=== PATIENT | female | born 1960 | race Caucasian/White ===

== ENCOUNTER → 2017-09-16 | Outpatient (CLI) | payer OTHER | LOC: FIMAGING 14:55 | PROVIDERS: ATTEND Orthopaedic Surgery | DX: Z01.818 Encounter for other preprocedural examination (principal); M16.11 Unilateral primary osteoarthritis, right hip ==

== ENCOUNTER 2017-10-05 11:56 | Inpatient (IN) | payer OTHER ==
--- NOTE | 2017-10-05 07:17 | PDHPUP ---
History & Physical Update H&P update statement: This history and physical update is based on an assessment of the patient which was completed after admission or registration (within 24 hours), but prior to the surgery/procedure. H&P update: H&P reviewed & patient examined, no change in patient's condition since H&P completed
[~2017-10-05 11:56] MED LIST: BUPI/epINEPH/KETOROLAC IU ONE; ROPIVACAINE 0.2% 80 MG, EPINEPHrine 0.2 MG, KETOROLAC TROMETHAMINE 30 MG in SYRINGE 0 ML IU ONE; TRANEXAMIC ACID 3,000 MG in NS (SYRINGE) 50 ML IRR ONE; TRANEXAMIC ACID 3,000 MG/50 ML BAG IRR ONE
[2017-10-05] MEDS ORDERED: ACETAMINOPHEN 325 MG TAB PO ONE (12:42)
[2017-10-05] MEDS ORDERED: ceFAZolin 2 GM/SWFI 2 GM/20 ML SYR IVP ONE (12:42)
[2017-10-05] MEDS ORDERED: FAMOTIDINE 20 MG TAB PO ONE (12:42)
[2017-10-05] MEDS ORDERED: DEXAMETHASONE 4 MG/ML VIAL IVP ONE (12:42)
[2017-10-05] MEDS ORDERED: LR 1,000 ML IV ONE (12:43)
[2017-10-05] MEDS ORDERED: MIDAZOLAM 2 MG/2 ML VIAL IVP ONE (14:04)
--- NOTE | 2017-10-05 14:04 | PDANEPAE ---
ANE History of Present Illness Hip OA ANE Past Medical History - Cardiovascular History Hx Hypertension: No Hx Arrhythmias: No Hx Chest Pain: No Hx Coronary Artery / Peripheral Vascular Disease: No Hx CHF / Valvular Disease: No Hx Palpitations: No - Pulmonary History Hx COPD: No Hx Asthma/Reactive Airway Disease: No Hx Recent Upper Respiratory Infection: No Hx Oxygen in Use at Home: No Hx Sleep Apnea: No Sleep Apnea Screening Result - Last Documented: Negative - Neurologic History Hx Cerebrovascular Accident: No Hx Seizures: No Hx Dementia: No - Endocrine History Hx Diabetes: No - Renal History Hx Renal Disorders: No - Liver History Hx Hepatic Disorders: No - Neurological & Psychiatric Hx Hx Neurological and Psychiatric Disorders: No - Cancer History Hx Cancer: Yes Cancer History Comment: breast CA - Congenital Disorder History Hx Congenital Disorders: No - GI History Hx Gastrointestinal Disorders: No - Other Health History Other Health History: none - Chronic Pain History Chronic Pain: Yes (back,left hip) - Surgical History Prior Surgeries: none ANE Review of Systems Review of Systems: - Exercise capacity METS (RN): 4 METS ANE Patient History - Allergies Allergies/Adverse Reactions: No Known Allergies Allergy (Verified 09/06/17 16:10) - Home Medications Home Medications: Acetaminophen [Tylenol 325mg (*)] 650 mg PO Q6H PRN 09/06/17 [Last Taken ] Herbals/Supplements -Info Only 1 ea PO DAILY 09/06/17 [Last Taken 2 Weeks Ago ~ 09/21/17] Meloxicam 15 mg PO DAILY 09/06/17 [Last Taken 2 Weeks Ago ~09/21/17] Multivitamins [Multivitamin (*)] 1 each PO DAILY 09/06/17 [Last Taken Unknown] - NPO status NPO Since - Liquids (Date): 10/05/17 NPO Since - Liquids (Time): 10:45 NPO Since - Solids (Date): 10/04/17 NPO Since - Solids (Time): 23:30 - Anes Hx Anes Hx: no prior problems - Smoking Hx Smoking Status: Never smoked - Family Anes Hx Family Hx Anesthesia Complications: none ANE Labs/Vital Signs - Vital Signs Blood Pressure: 129/83 Heart Rate: 73 Respiratory Rate: 14 O2 Sat (%): 96 Height: 160.02 cm Weight: 60.781 kg ANE Physical Exam - Airway Neck exam: FROM Mallampati Score: Class 1 Mouth exam: normal dental/mouth exam - Pulmonary Pulmonary: clear to auscultation - Cardiovascular Cardiovascular: regular rate and rhythym - ASA Status ASA Status: I ANE Anesthesia Plan Anesthesia Plan: spinal
[2017-10-05] MEDS ORDERED: LIDOCAINE 2% 5 ML SDV ONE (14:20)
[2017-10-05] MEDS ORDERED: PROPOFOL/EMULSION 500 MG/50 ML BOTTLE IV ONE (14:20)
[2017-10-05] MEDS ORDERED: NALOXONE HCL 0.4 MG/ML INJ IVP PRN (15:13)
[2017-10-05] MEDS ORDERED: ONDANSETRON 4 MG/2 ML VIAL IVP PRN ×2 (15:13→15:59)
[2017-10-05] MEDS ORDERED: HYDROmorphONE/DILAUDID 2 MG/ML INJ IVP PRN (15:13)
[2017-10-05] MEDS ORDERED: fentaNYL 100 MCG/2 ML INJ IVP PRN (15:13)
[2017-10-05] MEDS ORDERED: PROPOFOL 200 MG/20 ML VIAL ONE (15:20)
[2017-10-05] MEDS ORDERED: PHENYLEPHRINE HCL 100 MCG/ML SYR ONE (15:39)
[2017-10-05] MEDS ORDERED: TEMAZEPAM 15 MG CAP PO PRN (15:59)
[2017-10-05] MEDS ORDERED: ONDANSETRON DISINTEGRATING 4 MG TAB PO PRN (15:59)
[2017-10-05] MEDS ORDERED: DIPHENOXYLATE/ATROPINE LOMOTIL 1 TAB PO PRN (15:59)
[2017-10-05] MEDS ORDERED: oxyCODONE IR 5 MG TAB PO PRN (15:59)
[2017-10-05] MEDS ORDERED: METOCLOPRAMIDE 10 MG/2 ML VIAL IVP PRN (15:59)
[2017-10-05] MEDS ORDERED: MAGNESIUM HYDROXIDE 30 ML UDCUP PO PRN (15:59)
[2017-10-05] MEDS ORDERED: LACTULOSE 20 GM/30 ML UDCUP PO PRN (15:59)
[2017-10-05] MEDS ORDERED: PROMETHAZINE HCL 25 MG/ML INJ IVP PRN (15:59)
[2017-10-05] MEDS ORDERED: PROMETHAZINE HCL 25 MG SUPPR PR PRN (15:59)
[2017-10-05] MEDS ORDERED: diphenhydrAMINE 25 MG CAP PO PRN (15:59)
[2017-10-05] MEDS ORDERED: BISACODYL 10 MG SUPP PR PRN (15:59)
[2017-10-05] MEDS ORDERED: POLYETHYLENE GLYCOL 3350 17 GM PKT PO PRN (15:59)
--- NOTE | 2017-10-05 15:59 | POSTOPPROG ---
Post Op Note Date of Operation: 10/05/17 Surgeon: Michaela Rivas Claims Assistant: indy rivas Anesthesiologist: dr. waddell Anesthesia: Spinal Pre-op Diagnosis: right hip OA Post-op Diagnosis: same Indication: right hip pain Procedure: R ISABEL ant approach, robot assisted Findings: severe hip OA Inf/Abcess present in the surg proc area at time of surgery?: No EBL: 100-500
[2017-10-05] MEDS ORDERED: LR 1,000 ML IV SCH (16:00)
--- NOTE | 2017-10-05 16:04 | PDMN ---
Medical Necessity Medical necessity: S560 hip arthroplasty A-2 INPT only: R ISABEL ant. approach, robot assist.
--- NOTE | 2017-10-05 16:07 | POSTANESTH ---
Post Anesthetic Evaluation Cardiovascular Status: Normal, Stable Respiratory Status: Normal, Stable Level of Consciousness/Mental Status: Can Participate in Eval Pain Control: Adequate, Prn Tx Ordered Nausea/Vomiting Control: Adequate, Prn Tx Ordered Complications Possibly Related to Anesthesia: None Noted
[2017-10-05] MEDS ORDERED: HYDROmorphONE/DILAUDID 2 MG/ML INJ ONE (16:10)
[2017-10-05] MEDS ORDERED: fentaNYL 100 MCG/2 ML INJ ONE (16:10)
[2017-10-05 17:25] VITALS: RESP 16
[2017-10-05] MEDS: ACETAMINOPHEN 325 MG TAB PO SCH (18:52)
[2017-10-05] MEDS ORDERED: ceFAZolin 2 GM/DEXTROSE 100 ML IV SCH (22:00)
[2017-10-05] MEDS: ceFAZolin 2 GM/SWFI 2 GM/20 ML SYR IVP SCH (22:50)
[2017-10-05] MEDS: CYCLOBENZAPRINE 10 MG TAB PO PRN (22:59)
[2017-10-05] MEDS: FAMOTIDINE 20 MG TAB PO SCH (22:59)
[2017-10-05] MEDS: SENNOSIDES/DOCUSATE SODIUM TAB PO SCH (22:59)
[2017-10-05] MEDS: ASPIRIN 81 MG CHEWABLE TAB PO SCH (22:59)
[2017-10-06] MEDS: ACETAMINOPHEN 325 MG TAB PO SCH ×2 (01:45→05:11)
[2017-10-06] MEDS: ceFAZolin 2 GM/SWFI 2 GM/20 ML SYR IVP SCH (05:11)
--- NOTE | 2017-10-06 06:11 | GOP ---
[f rep st] OPERATIVE REPORT DATE OF OPERATION: 10/05/2017 SURGEON: Sondra Ortiz MD MANUFACTURE SPECIALIST: Mary Ortiz, CRAIG. ANESTHESIA: Spinal. PREOPERATIVE DIAGNOSIS: Right hip osteoarthritis. POSTOPERATIVE DIAGNOSIS: Right hip osteoarthritis. PROCEDURE PERFORMED: Right total hip arthroplasty with computer navigation, robotics. FINDINGS: ESTIMATED BLOOD LOSS: 200 cc. INDICATIONS: The patient has progressively worsening arthritis of the hip which has failed medical m anagement. The patient understands the treatment option including continued non-operative care and h as selected surgical intervention. The patient has decided to undergo total hip arthroplasty via the direct anterior approach understanding the risks of the procedure including, but not limited to, renuka rovascular injury, infection, persistent pain, component wear and loosening, deep venous thrombosis, pulmonary embolism, limb length inequality (including dislocation), and intraoperative fractures. DESCRIPTION OF PROCEDURE: After proper identification of the patient including verification and cortez ing the surgical site, the patient was brought to the operating room and placed in the supine positio n. All bony prominences were well padded. Anesthesia was induced without complication and intraveno us prophylactic antibiotics were administered prior to skin incision. After prepping and draping in the usual sterile fashion, attention was drawn to the contralateral pel vis for attachment of the computer navigation tracker. Three percutaneous incisions were made over t he iliac crest and the pelvic tracker was affixed using threaded 3.5 mm pins yielding excellent fixat ion. Using computer navigation the patient's leg length and topographical pelvic anatomy was registe red without complication. Attention was then drawn to surgical exposure of the hip. An incision was made with a #10 Bard Orange r blade starting 3 cm lateral and 3 cm distal to the anterior superior iliac spine measuring 8 cm to 10 cm and coursing distally toward the greater trochanter. The skin and subcutaneous tissues were di vided sharply down the fascia lazaro. The fascia lazaro was incised in line with the skin incision expos ing the underlying tensor fascia lazaro muscle. This muscle was bluntly elevated from the fascia and t he first extracapsular Cobra retractor was placed laterally at the junction of the superior femoral n piper and greater trochanter. The lateral femoral circumflex vessels were identified, cauterized and d ivided with the Aquamantys bipolar cautery. The deep investing fascia of the TFL was divided to allo w proper mobilization of the muscle preventing damage during retraction. The reflected head of the r ectus femoris muscle was elevated off the anterior hip capsule and a medial Cobra retractor was place d just proximal to the lesser trochanter. The anterior capsulotomy was made sharply from the superolateral acetabulum to the saddle junction of the superior femoral neck and greater trochanter, then coursing inferomedial towards the lesser troc hanter. The retractors were then placed in the intracapsular position for femoral neck osteotomy. C orresponding to preoperative templating the osteotomy was made with the oscillating saw protecting th e greater trochanter and soft tissues. The femoral head was removed from the acetabulum with a corks crew and confirmed to be severely arthritic with exposed bone, deformity and osteophytes. Similar fi nding was confirmed in the acetabulum. The Arch table extension was then placed in 40 degrees external rotation. Attention was then drawn t o the acetabular preparation. After placement of the anterior and posterior Cobra retractors outside the labrum and intrascapular the circumferential labrum was removed sharply. The foveal contents we re then removed and hemostasis obtained with cautery. The anatomy of the acetabulum was then registe red using computer navigation. The first reamer selected was sized using the removed femoral head. Reaming began with robotic cam t at 40 degrees of abduction and 20 degrees of anteversion using computer navigation. Reaming ceased 0 mm less than the definitive acetabular component. The final acetabular component was inserted usi ng the computer to achieve proper orientation yielding excellent purchase and stability in the acetab ulum. The final acetabular liner was then placed and its seating confirmed. Attention was then turned to the femur. The Arch table extension was placed in extension and adducti on delivering the osteotomized femoral neck into the wound. A 2-pronged femoral elevator was placed at the calcar and another at the tip of the greater trochanter. The posterolateral capsule was relea sed with cautery allowing mobilization of the femur lateral and anterior for preparation. The experience specialist al rotators were visualized and preserved. A curette and rongeur were used to open the starting poin t for broaching. Serial broaching started with the #0 broach and ended with the broach that exhibited excellent fit in the proximal femur. A change in pitch during mallet strikes was accompanied by the inability to advance the broach any further. The trial reduction was performed and fluoroscopic dmitri igation was utilized to check limb length. Adjustments were made to equalize limb length accordingly . After the final trials were accepted they were removed and the wound was copiously lavaged. The femo ral component was seated to the same depth as the final broach and the femoral head was impacted onto the clean trunnion. The hip was then reduced for the final time and once more fluoroscopic navigati on used to check that limb length equality was achieved. The wound was irrigated and closed in layers, the fascia lazaro with 2-0 Quill, the subcutaneous tissue with a 2-0 Quill, and the skin with Dermabond, including the small incisions for computer navigation . Sterile dressings were applied. Final sharps and sponge counts were accurate. The patient was th en transferred to a hospital bed and brought to the recovery room in stable condition. IMPLANTS: Accolade II, size 5 at 127. Acetabular component a 54 mm Trident II. Liner is a Trident X3, 36 mm. The head is a Biolox Delta, 36 mm +0. /[id number]/MODL
[2017-10-06 07:42] VITALS: BP 124/75; PULSE 91; TEMP 98.5; O2SAT 95
[2017-10-06] MEDS: SENNOSIDES/DOCUSATE SODIUM TAB PO SCH (08:03)
[2017-10-06] MEDS: FAMOTIDINE 20 MG TAB PO SCH (08:03)
[2017-10-06] MEDS: ASPIRIN 81 MG CHEWABLE TAB PO SCH (08:03)
[2017-10-06] MEDS: CYCLOBENZAPRINE 10 MG TAB PO PRN (08:07)
--- NOTE | 2017-10-06 08:45 | SOAPPROG ---
SOAP Progress Note Assessment/Plan: Assessment: Patient is doing well POD 1 s/p R ISABEL Pain management: pain is well controlled on oral pain meds. VTE ppx: recommend aspirin 81 mg BID for 4 weeks, cont JACINTA and SCDs Anemia: level is expected initially postop. Asymptomatic. Continue to monitor D/c planning: d/c to home today pending release from PT Plan: 10/06/17 08:44 Subjective: Jena is doing well today, POD1, denies SOB, chest pain and N/V Objective: Vital Signs Temp Pulse Resp BP Pulse Ox 36.9 C 91 16 124/75 H 95 10/06/17 07:41 10/06/17 07:41 10/06/17 07:41 10/06/17 07:41 10/06/17 07:41 Laboratory Results 10/06/17 04:42 10/05/17 10/06/17 10/07/17 05:59 05:59 05:59 Intake Total 1950 Output Total 1800 400 Balance 150 -400 RLE: incision dressing is clean and dry, NVI, +pf/df ICD10 Worksheet Patient Problems: Problems Problem Status Onset Primary localized osteoarthritis of right hip Acute
--- NOTE | 2017-10-06 15:33 | GDS ---
[f rep st] DISCHARGE SUMMARY ADMISSION DIAGNOSIS: Right hip osteoarthritis. DISCHARGE DIAGNOSIS: Right hip osteoarthritis. PROCEDURE: Right total hip arthroplasty, robot assisted. VTE PROPHYLAXIS: Recommend aspirin 81 mg twice daily. BRIEF DESCRIPTION OF HOSPITAL STAY: Patient was admitted for an elective joint arthroplasty. The pa tient tolerated the procedure well and has passed physical therapy. The patient was given appropriat e antibiotic prophylaxis and venous thromboembolism prophylaxis. The patient's pain was well control led on oral pain medication, patient was holding down food, and had urinated. Decision was made to d ischarge the patient. The patient was given post-operative prescriptions pre-operatively. PLAN: Follow up as scheduled at Dr. Ortiz's office October 27, at 8:45 a.m. /[id number]/MODL
== END 2017-10-06 12:05 | disposition home or self-care (01) | DRG 470 ==
LOC: F3N 11:56
PROVIDERS: ADMIT Orthopaedic Surgery; ATTEND Orthopaedic Surgery
PROC: 0SR904A Replacement of Right Hip Joint with Ceramic on Polyethylene Synthetic Substitute, Uncemented, Open Approach (ICD-10-PCS; principal; 2017-10-05 14:15)
PROC: 8E0Y0CZ Robotic Assisted Procedure of Lower Extremity, Open Approach (ICD-10-PCS; principal; 2017-10-05 14:15)
DX: M16.11 Unilateral primary osteoarthritis, right hip (principal)
CPT/HCPCS: 97161-GP; 97165-GO; J0171; J0690; J1100; J1170; J1885; J2250; J2370; J2704; J3010

== ENCOUNTER → 2017-11-29 | Outpatient (CLI) | payer OTHER | LOC: FIMAGING 08:45 | PROVIDERS: ATTEND Orthopaedic Surgery | DX: M16.12 Unilateral primary osteoarthritis, left hip (principal); M48.061 Spinal stenosis, lumbar region without neurogenic claudication; M51.26 Other intervertebral disc displacement, lumbar region; M25.552 Pain in left hip ==

== ENCOUNTER 2017-12-14 08:15 | Inpatient (IN) | payer OTHER ==
[~2017-12-14 08:15] MED LIST changes: -BUPI/epINEPH/KETOROLAC IU ONE; -TRANEXAMIC ACID 3,000 MG/50 ML BAG IRR ONE
[2017-12-14] MEDS ORDERED: TRANEXAMIC ACID 3,000 MG/50 ML BAG IRR ONE (08:44)
[2017-12-14] MEDS ORDERED: LR 1,000 ML IV ONE (12:21)
[2017-12-14] MEDS ORDERED: ACETAMINOPHEN 325 MG TAB PO ONE (12:21)
[2017-12-14] MEDS ORDERED: ceFAZolin 2 GM/DEXTROSE 100 ML IV ONE (12:21)
[2017-12-14] MEDS ORDERED: FAMOTIDINE 20 MG TAB PO ONE (12:21)
[2017-12-14] MEDS ORDERED: DEXAMETHASONE 4 MG/ML VIAL IVP ONE (12:21)
--- NOTE | 2017-12-14 13:29 | PDANEPAE ---
ANE History of Present Illness 57 year old female presents for robot assisted left total hip arthroplasty. ANE Past Medical History - Cardiovascular History Hx Hypertension: No Hx Arrhythmias: No Hx Chest Pain: No Hx Coronary Artery / Peripheral Vascular Disease: No Hx CHF / Valvular Disease: No Hx Palpitations: No - Pulmonary History Hx COPD: No Hx Asthma/Reactive Airway Disease: No Hx Recent Upper Respiratory Infection: No Hx Oxygen in Use at Home: No Hx Sleep Apnea: No Sleep Apnea Screening Result - Last Documented: Negative - Neurologic History Hx Cerebrovascular Accident: No Hx Seizures: No Hx Dementia: No - Endocrine History Hx Diabetes: No - Renal History Hx Renal Disorders: No - Liver History Hx Hepatic Disorders: No - Neurological & Psychiatric Hx Hx Neurological and Psychiatric Disorders: No - Cancer History Hx Cancer: Yes Cancer History Comment: breast CA - Congenital Disorder History Hx Congenital Disorders: No - GI History Hx Gastrointestinal Disorders: No - Other Health History Other Health History: none - Chronic Pain History Chronic Pain: Yes (back,left hip) - Surgical History Prior Surgeries: none ANE Review of Systems Review of Systems: - Exercise capacity Exercise capacity: >=4 METS METS (RN): 4 METS ANE Patient History - Allergies Allergies/Adverse Reactions: No Known Allergies Allergy (Verified 12/14/17 12:37) - Home Medications Home medications: home medication list seen and reviewed Home Medications: Acetaminophen [Tylenol 325mg (*)] 650 mg PO Q6H PRN 09/06/17 [Last Taken ] Herbals/Supplements -Info Only 1 ea PO DAILY 09/06/17 [Last Taken 11/30/17] Multivitamins [Multivitamin (*)] 1 each PO DAILY 09/06/17 [Last Taken 11/30/17] Meloxicam 15 mg PO DAILY 11/21/17 [Last Taken 12/07/17] - NPO status NPO Since - Liquids (Date): 12/14/17 NPO Since - Liquids (Time): 09:00 NPO Since - Solids (Date): 12/13/17 NPO Since - Solids (Time): 19:00 - Anes Hx Anes Hx: no prior problems - Smoking Hx Smoking Status: Never smoked - Alcohol Use Alcohol Use: Occasionally - Family Anes Hx Family Anes Hx: neg - N/A Family Hx Anesthesia Complications: none ANE Labs/Vital Signs - Vital Signs Vital Signs: reviewed preoperatively; see RN documention for details Blood Pressure: 136/91 Heart Rate: 81 Respiratory Rate: 16 O2 Sat (%): 95 Height: 160.02 cm Weight: 62.142 kg ANE Physical Exam - Airway Neck exam: FROM Mallampati Score: Class 2 Mouth exam: normal dental/mouth exam - Pulmonary Pulmonary: no respiratory distress - Cardiovascular Cardiovascular: regular rate and rhythym - ASA Status ASA Status: II ANE Anesthesia Plan Anesthesia Plan: GA w LMA, MAC, spinal Total IV Anesthesia: No
[2017-12-14] MEDS ORDERED: MIDAZOLAM 2 MG/2 ML VIAL ONE (14:00)
[2017-12-14] MEDS ORDERED: MIDAZOLAM 2 MG/2 ML VIAL IVP ONE (14:01)
[2017-12-14] MEDS ORDERED: PROPOFOL/EMULSION 500 MG/50 ML BOTTLE IV ONE ×2 (14:07→15:03)
[2017-12-14] MEDS ORDERED: DEXAMETHASONE 4 MG/ML VIAL ONE (14:10)
[2017-12-14] MEDS ORDERED: ONDANSETRON 4 MG/2 ML VIAL ONE (14:10)
[2017-12-14] MEDS ORDERED: oxyCODONE IR 5 MG TAB PO PRN (14:37)
[2017-12-14] MEDS ORDERED: LACTULOSE 20 GM/30 ML UDCUP PO PRN (14:37)
[2017-12-14] MEDS ORDERED: diphenhydrAMINE 25 MG CAP PO PRN (14:37)
[2017-12-14] MEDS ORDERED: BISACODYL 10 MG SUPP PR PRN (14:37)
[2017-12-14] MEDS ORDERED: DIPHENOXYLATE/ATROPINE LOMOTIL 1 TAB PO PRN (14:37)
[2017-12-14] MEDS ORDERED: PROMETHAZINE HCL 25 MG/ML INJ IVP PRN (14:37)
[2017-12-14] MEDS ORDERED: METOCLOPRAMIDE 10 MG/2 ML VIAL IVP PRN (14:37)
[2017-12-14] MEDS ORDERED: PROMETHAZINE HCL 25 MG SUPPR PR PRN (14:37)
[2017-12-14] MEDS ORDERED: ONDANSETRON DISINTEGRATING 4 MG TAB PO PRN (14:37)
[2017-12-14] MEDS ORDERED: MAGNESIUM HYDROXIDE 30 ML UDCUP PO PRN (14:37)
[2017-12-14] MEDS ORDERED: ONDANSETRON 4 MG/2 ML VIAL IVP PRN ×2 (14:37→14:56)
[2017-12-14] MEDS ORDERED: TEMAZEPAM 15 MG CAP PO PRN (14:37)
[2017-12-14] MEDS ORDERED: POLYETHYLENE GLYCOL 3350 17 GM PKT PO PRN (14:37)
[2017-12-14] MEDS ORDERED: PHENYLEPHRINE HCL 100 MCG/ML SYR IVP PRN (14:56)
[2017-12-14] MEDS ORDERED: NALOXONE HCL 0.4 MG/ML INJ IVP PRN (14:56)
[2017-12-14] MEDS ORDERED: fentaNYL 100 MCG/2 ML INJ IVP PRN (14:56)
[2017-12-14] MEDS ORDERED: DIAZEPAM 5 MG/ML 1 ML SYR IVP PRN (14:56)
[2017-12-14] MEDS ORDERED: LR 500 ML IV PRN (14:56)
[2017-12-14] MEDS ORDERED: HYDROmorphONE/DILAUDID 1 MG/ML INJ IVP PRN (14:56)
[2017-12-14] MEDS ORDERED: LR 1,000 ML IV SCH (15:00)
--- NOTE | 2017-12-14 16:06 | POSTOPPROG ---
Post Op Note Date of Operation: 12/14/17 Surgeon: Michaela Ortiz Design Analyst: Mary Ortiz PAc Anesthesiologist: Randy Anesthesia: Spinal Pre-op Diagnosis: L hip djd Post-op Diagnosis: same Indication: pain Procedure: L ISABEL with robotic assist Findings: DJD hip Inf/Abcess present in the surg proc area at time of surgery?: No EBL: 100-500
--- NOTE | 2017-12-14 16:55 | POSTANESTH ---
Post Anesthetic Evaluation Cardiovascular Status: Normal, Stable, Similar to Pre-Op Cond Respiratory Status: Normal, Stable, Similar to Pre-op Cond. Level of Consciousness/Mental Status: Can Participate in Eval, Alert and Oriented Pain Control: Adequate, Prn Tx Ordered Nausea/Vomiting Control: Adequate, Prn Tx Ordered Complications Possibly Related to Anesthesia: None Noted
[2017-12-14] MEDS ORDERED: fentaNYL 100 MCG/2 ML INJ ONE (18:07)
[2017-12-14] MEDS: ACETAMINOPHEN 325 MG TAB PO SCH ×2 (18:36→23:54)
[2017-12-14] MEDS: FAMOTIDINE 20 MG TAB PO SCH (20:11)
[2017-12-14] MEDS: ASPIRIN 81 MG CHEWABLE TAB PO SCH (20:11)
[2017-12-14] MEDS: SENNOSIDES/DOCUSATE SODIUM TAB PO SCH (20:11)
--- NOTE | 2017-12-14 20:14 | GOP ---
[f rep st] OPERATIVE REPORT DATE OF OPERATION: 12/14/2017 SURGEON: Sondra Ortiz MD NEUROSURGEON: Sondra Ortiz MD. RN SCHOOL: [employer]. ANESTHESIA: Spinal. PREOPERATIVE DIAGNOSIS: Left hip osteoarthritis. POSTOPERATIVE DIAGNOSIS: Left hip osteoarthritis. PROCEDURE PERFORMED: Total hip arthroplasty with computer navigation with robotic assist. FINDINGS: ESTIMATED BLOOD LOSS: 200 cc. INDICATIONS: The patient has progressively worsening arthritis of the hip which has failed medical m anagement. The patient understands the treatment option including continued non-operative care and h as selected surgical intervention. The patient has decided to undergo total hip arthroplasty via the direct anterior approach understanding the risks of the procedure including, but not limited to, renuka rovascular injury, infection, persistent pain, component wear and loosening, deep venous thrombosis, pulmonary embolism, limb length inequality (including dislocation), and intraoperative fractures. DESCRIPTION OF PROCEDURE: After proper identification of the patient including verification and cortez ing the surgical site, the patient was brought to the operating room and placed in the supine positio n. All bony prominences were well padded. Anesthesia was induced without complication and intraveno us prophylactic antibiotics were administered prior to skin incision. After prepping and draping in the usual sterile fashion, attention was drawn to the contralateral pel vis for attachment of the computer navigation tracker. Three percutaneous incisions were made over t he iliac crest and the pelvic tracker was affixed using threaded 3.5 mm pins yielding excellent fixat ion. Using computer navigation the patient's leg length and topographical pelvic anatomy was registe red without complication. Attention was then drawn to surgical exposure of the hip. An incision was made with a #10 Bard Nicko r blade starting 3 cm lateral and 3 cm distal to the anterior superior iliac spine measuring 8 cm to 10 cm and coursing distally toward the greater trochanter. The skin and subcutaneous tissues were di vided sharply down the fascia lazaro. The fascia lazaro was incised in line with the skin incision expos ing the underlying tensor fascia lazaro muscle. This muscle was bluntly elevated from the fascia and t he first extracapsular Cobra retractor was placed laterally at the junction of the superior femoral n piper and greater trochanter. The lateral femoral circumflex vessels were identified, cauterized and d ivided with the Aquamantys bipolar cautery. The deep investing fascia of the TFL was divided to allo w proper mobilization of the muscle preventing damage during retraction. The reflected head of the r ectus femoris muscle was elevated off the anterior hip capsule and a medial Cobra retractor was place d just proximal to the lesser trochanter. The anterior capsulotomy was made sharply from the superolateral acetabulum to the saddle junction of the superior femoral neck and greater trochanter, then coursing inferomedial towards the lesser troc hanter. The retractors were then placed in the intracapsular position for femoral neck osteotomy. C orresponding to preoperative templating the osteotomy was made with the oscillating saw protecting th e greater trochanter and soft tissues. The femoral head was removed from the acetabulum with a corks crew and confirmed to be severely arthritic with exposed bone, deformity and osteophytes. Similar fi ndings were confirmed in the acetabulum. The Arch table extension was then placed in 40 degrees external rotation. Attention was then drawn t o the acetabular preparation. After placement of the anterior and posterior Cobra retractors outside the labrum and intrascapular the circumferential labrum was removed sharply. The foveal contents we re then removed and hemostasis obtained with cautery. The anatomy of the acetabulum was then registe red using computer navigation. The first reamer selected was sized using the removed femoral head. Reaming began with robotic cam t at 40 degrees of abduction and 20 degrees of anteversion using computer navigation. Reaming ceased 0 mm less than the definitive acetabular component. The final acetabular component was inserted usi ng the computer to achieve proper orientation yielding excellent purchase and stability in the acetab ulum. The final acetabular liner was then placed and its seating confirmed. Attention was then turned to the femur. The Arch table extension was placed in extension and adducti on delivering the osteotomized femoral neck into the wound. A 2-pronged femoral elevator was placed at the calcar and another at the tip of the greater trochanter. The posterolateral capsule was relea sed with cautery allowing mobilization of the femur lateral and anterior for preparation. The beam press operator al rotators were visualized and preserved. A curette and rongeur were used to open the starting poin t for broaching. Serial broaching started with the #0 broach and ended with the broach that exhibited excellent fit in the proximal femur. A change in pitch during mallet strikes was accompanied by the inability to advance the broach any further. The trial reduction was performed and fluoroscopic dmitri igation was utilized to check limb length. Adjustments were made to equalize limb length accordingly . After the final trials were accepted they were removed and the wound was copiously lavaged. The femo ral component was seated to the same depth as the final broach and the femoral head was impacted onto the clean trunnion. The hip was then reduced for the final time and once more fluoroscopic navigati on used to check that limb length equality was achieved. The wound was irrigated and closed in layers, the fascia lazaro with 2-0 Quill, the subcutaneous tissue with a 2-0 Quill, and the skin with Dermabond, including the small incisions for computer navigation . Sterile dressings were applied. Final sharps and sponge counts were accurate. The patient was th en transferred to a hospital bed and brought to the recovery room in stable condition. IMPLANTS: Accolade II size 4 at 127, acetabular component a 52 mm Titanium. The liner is a Trident X3, 36 mm head with Biolox Delta 36 mm, +0. /[id number]/MODL
[2017-12-14] MEDS: CYCLOBENZAPRINE 10 MG TAB PO PRN (20:18)
[2017-12-14] MEDS: ceFAZolin 2 GM/DEXTROSE 100 ML IV SCH (22:33)
[2017-12-15] MEDS: ACETAMINOPHEN 325 MG TAB PO SCH (06:02)
[2017-12-15] MEDS: ceFAZolin 2 GM/DEXTROSE 100 ML IV SCH (06:03)
[2017-12-15] MEDS: CYCLOBENZAPRINE 10 MG TAB PO PRN (06:36)
[2017-12-15 07:19] VITALS: BP 116/68
[2017-12-15] MEDS: FAMOTIDINE 20 MG TAB PO SCH (08:34)
[2017-12-15] MEDS: ASPIRIN 81 MG CHEWABLE TAB PO SCH (08:34)
[2017-12-15] MEDS: SENNOSIDES/DOCUSATE SODIUM TAB PO SCH (08:34)
--- NOTE | 2017-12-15 08:44 | SOAPPROG ---
SOAP Progress Note Assessment/Plan: Assessment: Patient is doing well POD 1 s/p L ISABEL 1) Pain management: pain is well controlled on oral pain meds. 2)VTE ppx: recommend aspirin 81 mg BID for 4 weeks, cont JACINTA and SCDs 3)Anemia: level is expected initially postop. Continue to monitor 4)drainage from makoplasty pin site: right iliac crest. patient had several dressing changes yesterday due to moderate bloody drainage from pin sites. Pressure dressing applied yesterday evening at 10:20pm has remained intact with little to not drainage noticeable from surface of dressing. Recommend leaving that dressing in place until Tuesday. Ask patient to come in for dressing change with myself at [facility] [place]. Asked the nurse, Leatha, to provide patient with extra pressure dressing materials in case patient has to place a new dressing over the weekend. 5)lightheadedness: patient had lightheadedness symptoms this morning going to the bathroom. Patient reports history of this in the past. Patient did not lose consciousness. continue to monitor closely. 6) D/c planning: d/c to home today pending release from PT, patient's comfort level and improvement in lightheadedness Plan: 12/15/17 08:40 Subjective: raymond is doing well, c/o left sided low back pain and muscle cramps in her left thigh. no drainage from pin sites since last dressing applied at 10:20pm. denies sob, chest pain and N/V. episode of dizziness this am. improving. Objective: Vital Signs Temp Pulse Resp BP Pulse Ox 36.8 C 78 14 116/68 97 12/15/17 07:17 12/15/17 07:17 12/15/17 07:17 12/15/17 07:17 12/15/17 07:17 Laboratory Results 12/15/17 04:29 12/14/17 12/15/17 12/16/17 05:59 05:59 05:59 Intake Total 3325 220 Output Total 2600 400 Balance 725 -180 LLE: incision dressing is clean and dry, NVI, +pf/df RLE: pressure dressing applied to iliac crest pin sites, intact, no drainage ICD10 Worksheet Patient Problems: Problems Problem Status Onset Primary localized osteoarthritis of right hip Acute Primary localized osteoarthritis of left hip Acute
--- NOTE | 2017-12-15 09:21 | PDMN ---
Medical Necessity [place] [facility] [place]; IP only surgery; L ISABEL
--- NOTE | 2017-12-15 15:30 | GDS ---
[f rep st] DISCHARGE SUMMARY ADMISSION DIAGNOSIS: Left hip osteoarthritis. DISCHARGE DIAGNOSIS: Left hip osteoarthritis. PROCEDURE: Left total hip arthroplasty, robotic assisted. VTE PROPHYLAXIS: Recommend aspirin 81 mg twice daily for 4 weeks. BRIEF DESCRIPTION OF HOSPITAL STAY: Patient was admitted for an elective joint arthroplasty. The pa cassandra tolerated the procedure well and has passed physical therapy. The patient was given appropriat e antibiotic prophylaxis and venous thromboembolism prophylaxis. The patient's pain was well control led on oral pain medication, patient was holding down food, and had urinated. Decision was made to d ischarge the patient. The patient was given post-operative prescriptions pre-operatively. PLAN: Follow up as scheduled in Dr. Ortiz's office December 21. /[id number]/MODL
== END 2017-12-15 10:03 | disposition home or self-care (01) | DRG 470 ==
LOC: F3N 12:08
PROVIDERS: ADMIT Orthopaedic Surgery; ATTEND Orthopaedic Surgery
PROC: 0SRB04A Replacement of Left Hip Joint with Ceramic on Polyethylene Synthetic Substitute, Uncemented, Open Approach (ICD-10-PCS; principal; 2017-12-14 14:15)
PROC: 8E0Y0CZ Robotic Assisted Procedure of Lower Extremity, Open Approach (ICD-10-PCS; principal; 2017-12-14 14:15)
DX: M16.12 Unilateral primary osteoarthritis, left hip (principal); Z96.641 Presence of right artificial hip joint; Z85.3 Personal history of malignant neoplasm of breast
CPT/HCPCS: 97161-GP; J0171; J0690; J1100; J1885; J2250; J2405; J2704; J2795; J3010

== ENCOUNTER → 2018-04-14 | Outpatient (CLI) | payer OTHER | LOC: FIMAGING 06:43 | PROVIDERS: ATTEND Internal Medicine Hematology & Oncology | DX: Z08 Encounter for follow-up examination after completed treatment for malignant neoplasm (principal); Z90.13 Acquired absence of bilateral breasts and nipples; Z85.3 Personal history of malignant neoplasm of breast | CPT/HCPCS: 0159T; 77059; C8907 ==